=== PATIENT | female | born 1980 | race Caucasian/White ===

== ENCOUNTER 2021-03-01 23:51 | Emergency (ER) | payer MEDICAID ==
[~2021-03-01] VITALS: Ht 162.6 cm; Wt 65.6 kg
[2021-03-02 00:02] VITALS: BP 108/70
[2021-03-02] MEDS ORDERED: ondansetron 4mg rapidly disintigrating tab PO ONE (00:35)
[2021-03-02 00:54] LABS: CLARITY,URINE SLIGHTLY CLOUDY (Clear); COLOR,URINE YELLOW (Yellow); GLUCOSE, URINE NEGATIVE (Neg); KETONES,URINE NEGATIVE (Neg); LEUKOCYTE ESTERASE ,URINE MODERATE (Neg); NITRITES, URINE NEGATIVE (Neg); OCCULT BLOOD,URINE NEGATIVE (Neg); PROTEIN,URINE NEGATIVE (Neg); UA COLLECTION TYPE NON-SPECIFIED; UROBILINOGEN,URINE 0.2 E.U/dL (0.2-1.0)
[2021-03-02 01:00] LABS: BACTERIA,URINE 2+ /HPF (Neg); MUCUS STRANDS FEW /LPF (Neg); SQUAMOUS EPITHELIAL CELL,UR FEW /LPF (FEW)
[2021-03-02 01:01] LABS: TRANSITIONAL EPI CELLS,URINE FEW /HPF; WBC,URINE 20-30 /HPF (0-4)
--- NOTE | 2021-03-02 01:21 | NUR ---
Patient with Tech.
[2021-03-02 01:53] LABS: BASOPHILS # (AUTO) 0.1 X10'3 (0-0.2); BASOPHILS % (AUTO) 0.8 % (0-1); EOSINOPHILS # (AUTO) 0.2 X10'3 (0-0.9); EOSINOPHILS % (AUTO) 1.1 % (0-6); HEMOGLOBIN 10.6 g/dl (12.0-16.0); LYMPHOCYTES # (AUTO) 0.7 X10'3 (1.1-4.8); LYMPHOCYTES % (AUTO) 5.2 % (21-51); MEAN CORPUSCULAR HEMOGLOBIN 25.8 PG (27.0-31.0); MEAN CORPUSCULAR VOLUME 78.2 FL (78-98); MEAN PLATELET VOLUME 8.8 FL (7.4-10.4); MONOCYTES # (AUTO) 0.5 X10'3 (0-0.9); MONOCYTES % (AUTO) 3.3 % (2-12); NEUTROPHILS # (AUTO) 12.8 X10'3 (1.8-7.7); NEUTROPHILS % (AUTO) 89.6 % (42-75); PLATELET COUNT 286 X10'3 (140-440); RED BLOOD COUNT 4.09 X10'6 (4.20-5.60); RED CELL DISTRIBUTION WIDTH 15.7 % (11.5-14.5); WHITE BLOOD COUNT 14.3 X10'3 (4.5-11.0)
[2021-03-02 02:09] LABS: ALANINE AMINOTRANSFERASE 37 U/L (12-78); ALBUMIN 2.6 G/DL (3.4-5.0); ALBUMIN/GLOBULIN RATIO 0.6 (1.1-1.5); ALKALINE PHOSPHATASE 69 IU/L (46-116); ANION GAP 12 (8-16); ASPARTATE AMINO TRANSFERASE 24 U/L (10-37); BILIRUBIN,TOTAL 0.3 MG/DL (0.1-1.0); BLOOD UREA NITROGEN 14 MG/DL (7-18); BUN/CREATININE RATIO 23.7 (6.6-38.0); CHLORIDE 104 MMOL/L (99-107); CREATININE 0.59 MG/DL (0.40-0.90); GLUCOSE 94 MG/DL (70-104); POTASSIUM 3.5 MMOL/L (3.5-5.1); SODIUM 138 MMOL/L (135-145); TOTAL PROTEIN 6.9 G/DL (6.4-8.2); eGFR > 90 ML/MIN
[2021-03-02] MEDS ORDERED: NITR100C6 PO (02:14)
[2021-03-02 02:33] LABS: BETA HCG,QUANTITATIVE 4439 mIU/ml
== END 2021-03-02 02:51 | disposition home or self-care (01) ==
LOC: ER 23:52
DX: O00.01 Abdominal pregnancy with intrauterine pregnancy (principal); R10.84 Generalized abdominal pain; R11.10 Vomiting, unspecified; M25.552 Pain in left hip; N13.8 Other obstructive and reflux uropathy; Z3A.22 22 weeks gestation of pregnancy; Z59.00 Homelessness unspecified; Z88.1 Allergy status to other antibiotic agents; Z88.8 Allergy status to other drugs, medicaments and biological substances; Z79.899 Other long term (current) drug therapy
CPT/HCPCS: 36415; 76815; 80053; 81001; 84702; 85025; 85610; 86900; 86901; 87088; 99284

== ENCOUNTER 2024-03-29 18:03 | Emergency (ER) | payer SELFPAY ==
[~2024-03-29] VITALS: Ht 160 cm; Wt 58.1 kg
[~2024-03-29 18:03] MED LIST: NITR100C6 PO
[2024-03-29 18:05] VITALS: BP 134/90; PULSE 99; TEMP 98; O2SAT 100
[2024-03-29 19:01] VITALS: RESP 16
[2024-03-29] MEDS: ketorolac trometh 30MG/ML vial 30 MG/ML VIAL IM ONE (19:01)
== END 2024-03-29 19:59 | disposition left against medical advice (07) ==
LOC: ER 18:03
DX: M54.2 Cervicalgia (principal); Z88.2 Allergy status to sulfonamides; Z88.8 Allergy status to other drugs, medicaments and biological substances; Z79.899 Other long term (current) drug therapy; Z59.00 Homelessness unspecified
CPT/HCPCS: 72040; 72070; 96372; 99284; J1885